=== PATIENT | female | born 1985 | race Caucasian/White ===

== ENCOUNTER 2021-03-19 13:33 | Outpatient (CLI) | payer OTHER | END 2021-03-19 13:34 | disposition critical access hospital (66) | LOC: EMS 13:33 | DX: S00.03XA Contusion of scalp, initial encounter (principal); R51.9 Headache, unspecified; R42 Dizziness and giddiness; R11.0 Nausea; W01.0XXA Fall on same level from slipping, tripping and stumbling without subsequent striking against object, initial encounter; Y92.211 Elementary school as the place of occurrence of the external cause; Y99.0 Civilian activity done for income or pay | CPT/HCPCS: A0425; A0429 ==

== ENCOUNTER 2021-03-19 13:52 | Emergency (ER) | payer OTHER ==
[2021-03-19 14:04] VITALS: BP 118/84
--- NOTE | 2021-03-19 14:52 | CT Report ---
PROCEDURE: HEAD WO INDICATIONS: Concussion, headache, neck pain TECHNIQUE: Noncontrast 4.5 mm thick angled axial sections acquired from the foramen magnum to the vertex. For r adiation dose reduction, the following was used: automated exposure control, adjustment of mA and/or kV according to patient size. COMPARISON: None. FINDINGS: Image quality: Excellent. CSF spaces: Basal cisterns are patent. No extra-axial fluid collections. Ventricles are normal in size and shape. Brain: No midline shift. No intracranial masses or hemorrhage. Andersen-white matter interface is norm al. Skull and face: Calvarium and visualized facial bones are intact, without suspicious lesions. Sinuses: Visualized sinuses and mastoids are clear. IMPRESSION: No acute intracranial finding demonstrated. Reviewed by: Preet Chao MD on 03/19/2021 2:51 PM PST Approved by: Preet Chao MD on 03/19/2021 2:51 PM PST Station ID: [id number]
--- NOTE | 2021-03-19 14:55 | CT Report ---
PROCEDURE: CERVICAL SPINE WO INDICATIONS: Concussion, headache, neck pain. TECHNIQUE: Noncontrast 3 mm thick sections acquired from the skull base to the T4 level. Sagittal and coronal r eformats were then constructed. For radiation dose reduction, the following was used: automated exp osure control, adjustment of mA and/or kV according to patient size. COMPARISON: None. FINDINGS: Straightening of the usual cervical lordosis, likely positional. No listhesis. Vertebral body heights are maintained. There is no cervical spine fracture. Remaining partially visualized bones are intact . Intervertebral disc spaces and facet joints are congruent with no evidence of subluxation or disloc ation. No abnormal widening of the posterior elements or interspinous distances. No unenhanced CT val dence of significant soft tissue abnormality. IMPRESSION: No acute intracranial finding. Reviewed by: Preet Chao MD on 03/19/2021 2:54 PM PST Approved by: Preet Chao MD on 03/19/2021 2:54 PM PST Station ID: [id number]
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
== END 2021-03-19 15:37 | disposition home or self-care (01) ==
LOC: EDUNIT# → ED 13:52
DX: S06.0X0A Concussion without loss of consciousness, initial encounter (principal); S16.1XXA Strain of muscle, fascia and tendon at neck level, initial encounter; W01.10XA Fall on same level from slipping, tripping and stumbling with subsequent striking against unspecified object, initial encounter; Y92.219 Unspecified school as the place of occurrence of the external cause; Y99.0 Civilian activity done for income or pay
CPT/HCPCS: 1040M; 99282; 99284

== ENCOUNTER 2022-01-17 10:21 | Outpatient (CLI) | payer OTHER | END 2022-01-17 10:22 | disposition EMS.NT | LOC: EMS 10:21 | DX: J06.9 Acute upper respiratory infection, unspecified (principal) ==

== ENCOUNTER 2022-05-01 15:58 | Emergency (ER) | payer OTHER ==
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
--- OUTSIDE RECORDS SUMMARY | 2022-05-01 16:39 | EXTERNAL MEDICAL SUMMARY RPT | Continuity of Care Document ---
:1985 Author Organization [facility] Address [address] [place] [address] Phone Care Team Providers Name Role Phone Dominick Proctor Unavailable Unavailable Allergies No information. Encounters No information. Functional Status No information. Immunizations No information. Medications date description facility 2022-04-03 00:00 Budesonide-Formoterol [facility]22-02-25 [facility]:00 Rizatriptan [facility]-03 [facility] Fexofenadine [facility] Problems date description facility 2022-02-25 00:00 Dizziness of unknown etiology [facility] 2022-02-25 00:00 Headache [facility] Procedures No information. 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 unknown) (unknown) (no (unknown) (unknown) Chickenpox (units (unk nown) date) () unknown) (unknown) (no (unknown) (unknown) Chief Complaint (units (unknown) date) unknown) (unknown) (no (unknown) (unknown) Chief Complaint: (units (unknown) date) Dizziness unknown) (unknown) (no (unknown) (unknown) Congestive heart (units (unknown) date) failure unknown) (unknown) (no (unknown) (unknown) Conjunctivae: (units ( unknown) date) conjunctivae unknown) normal (unknown) (no (unknown) (unknown) : 1985 (units (unknown) date) Acct:[id number] unknown) (unknown) (no (unknown) (unknown) Dept at (units (unkno wn) date) . unknown) (unknown) (no (unknown) (unknown) Details: (units (unkno wn) date) unknown) (unknown) (no (unknown) (unknown) Diabetes (units (unkno wn) date) mellitus unknown) (unknown) (no (unknown) (unknown) Documented By: (units (unknown) date) Ernesto Owens D.O. unknown) 02/25/22 1322 (unknown) (no (unknown) (unknown) Draft (units (unkno wn) date) unknown) (unknown) (no (unknown) (unknown) Eczema (-2008) (units (unknown) date) unknown) (unknown) (no (unknown) (unknown) Epilepsy (units (unkno wn) date) unknown) (unknown) (no (unknown) (unknown) Exam Narrative (units (unknown) date) unknown) (unknown) (no (unknown) (unknown) Exam Narrative: (units (unknown) date) unknown) (unknown) (no (unknown) (unknown) Exam (units (unkno wn) date) unknown) (unknown) (no (unknown) (unknown) Eyelids: eyelids (units (unknown) date) normal unknown) (unknown) (no (unknown) (unknown) Eyes (units (unkno wn) date) unknown) (unknown) (no (unknown) (unknown) 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, unknown) heterozygous (unknown) (no (unknown) (unknown) Family History (units (unknown) date) (Reviewed unknown) 01/29/22 @ 13:34 by CARSON Naidu) (unknown) (no (unknown) (unknown) Family Practice (units (unknown) date) Office Visit unknown) (unknown) (no (unknown) (unknown) Father (units (unkno wn) date) Congestive heart unknown) failure (unknown) (no (unknown) (unknown) Femur fracture, (units (unknown) date) right unknown) (unknown) (no (unknown) (unknown) Fibroids () (units (unknown) date) unknown) (unknown) (no (unknown) (unknown) [facility] (units ([facility] date[facility] unknown) (unknown) (no (unknown) (unknown) General: (units (unkno wn) date) appearance unknown) normal, both eyes and all related structures (unknown) (no (unknown) (unknown) General: (units (unkno wn) date) cooperative, unknown) healthy appearing and comfortable (unknown) (no (unknown) (unknown) Grandfather (units (un known) date) Cancer unknown) (unknown) (no (unknown) (unknown) Grandmother (units (un known) date) Diabetes unknown) mellitus (unknown) (no (unknown) (unknown) Grandmother (units (un known) date) unknown) Parkinsons (unknown) (no (unknown) (unknown) H/O (units (unkno wn) date) adenoidectomy unknown) (unknown) (no (unknown) (unknown) HENMT (units (unkno wn) date) unknown) (unknown) (no (unknown) (unknown) HPI (units (unkno wn) date) unknown) (unknown) (no (unknown) (unknown) Head: normal to (units (unknown) date) inspection unknown) (unknown) (no (unknown) (unknown) Heavy menstrual (units (unknown) date) period () unknown) (unknown) (no (unknown) (unknown) History of (units (unk nown) date) abdominal surgery unknown) () (unknown) (no (unknown) (unknown) History of (units (unk nown) date) frequent unknown) headaches () (unknown) (no (unknown) (unknown) History of (units (unk nown) date) orthopedic unknown) surgery () (unknown) (no (unknown) (unknown) History of (units (unk nown) date) recurrent ear unknown) infection (unknown) (no (unknown) (unknown) History of (units (unk nown) date) tonsillectomy unknown) () (unknown) (no (unknown) (unknown) Hx of (units (unkno wn) date) tympanostomy unknown) tubes (unknown) (no (unknown) (unknown) Hyperlipidemia (units (unknown) date) unknown) (unknown) (no (unknown) (unknown) Hypertension (units (u nknown) date) unknown) (unknown) (no (unknown) (unknown) Intake (units (unkno wn) date) unknown) (unknown) (no (unknown) (unknown) Irregular (units (unkn own) date) menstrual cycle unknown) () (unknown) (no (unknown) (unknown) Loc: [facility] (units (unkno wn) date) unknown) (unknown) (no (unknown) (unknown) Medical History (units (unknown) date) (Reviewed unknown) 01/29/22 @ 13:34 by CARSON Naidu) (unknown) (no (unknown) (unknown) Mother (units (unkno wn) date) Hyperlipidemia unknown) (unknown) (no (unknown) (unknown) Neck: normal (units (u nknown) date) visual inspection unknown) (unknown) (no (unknown) (unknown) Neuro: alert and (units (unknown) date) oriented x3, unknown) normal cognition, speech normal, normal gait (unknown) (no (unknown) (unknown) Nose: external (units (unknown) date) nose normal unknown) (unknown) (no (unknown) (unknown) Orientation: (units (u nknown) date) alert and unknown) oriented x3 (unknown) (no (unknown) (unknown) PFSH (units (unkno wn) date) unknown) (unknown) (no (unknown) (unknown) Painful (units (unkno wn) date) menstrual periods unknown) (-2009) (unknown) (no (unknown) (unknown) Patient: (units (unkno wn) date) Diana Marie unknown) MR#: [id number] (unknown) (no (unknown) (unknown) Penicillins (units (un known) date) [PENICILLINS] unknown) Allergy (Severe, Verified 01/29/22 11:45) (unknown) (no (unknown) (unknown) Plantar warts (units ( unknown) date) unknown) (unknown) (no (unknown) (unknown) Pneumothorax on (units (unknown) date) left unknown) (unknown) (no (unknown) (unknown) Psych: grossly (units (unknown) date) normal and well unknown) kempt, mental status grossly normal, speech and (unknown) (no (unknown) (unknown) Raynauds disease (units (unknown) date) unknown) (unknown) (no (unknown) (unknown) Reason For Visit (units (unknown) date) unknown) (unknown) (no (unknown) (unknown) Resp: normal (units (u nknown) date) respiratory unknown) effort and able to speak in complete sentences (unknown) (no (unknown) (unknown) Sclera: sclerae (units (unknown) date) normal unknown) (unknown) (no (unknown) (unknown) Seizures () (units (unknown) date) unknown) (unknown) (no (unknown) (unknown) Signed By: (units (unk nown) date) unknown) (unknown) (no (unknown) (unknown) Skin: no rashes (units (unknown) date) or lesions noted unknown) (unknown) (no (unknown) (unknown) Smoking Status: (units (unknown) date) Never smoker unknown) (unknown) (no (unknown) (unknown) Status post (units (un known) date) emergency unknown) tracheotomy for assistance in breathing () (unknown) (no (unknown) (unknown) Stroke () (units (unknown) date) unknown) (unknown) (no (unknown) (unknown) Surgical History (units (unknown) date) (Reviewed unknown) 01/29/22 @ 13:34 by CARSON Naidu) (unknown) (no (unknown) (unknown) This note may (units ( unknown) date) have been all or unknown) partially generated using voice recognition (unknown) (no (unknown) (unknown) Tobacco + (units (unkn own) date) Substance Use unknown) (unknown) (no (unknown) (unknown) Tobacco Status (units (unknown) date) unknown) (unknown) (no (unknown) (unknown) Vision disorder (units (unknown) date) unknown) (unknown) (no (unknown) (unknown) 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 (units (unknown) date) If there are any unknown) questions, please contact the Medical Records (unknown) (no (unknown) (unknown) may occur. (units (unk nown) date) Occasional unknown) wrong-word or 'sound-alike' substitutions may have (unknown) (no (unknown) (unknown) movement normal, (units (unknown) date) congruent mood unknown) (unknown) (no (unknown) (unknown) occurred due to (units (unknown) date) the inherent unknown) limitations of voice recognition software. Please (unknown) (no (unknown) (unknown) read the note (units ( unknown) date) carefully and unknown) recognize, using context, where these substitutions (unknown) (no (unknown) (unknown) software. 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 (unknown) (no (unknown) (unknown) substance use (units ( unknown) date) type: does not unknown) use Result panel 2 (unknown) (no (unknown) (unknown) (no value) (units (unk nown) date) unknown) (unknown) (no (unknown) (unknown) 08/21/21 [Rx (units (u nknown) date) Confirmed unknown) 02/25/22] (unknown) (no (unknown) (unknown) 02/25/22 (units (unkno wn) date) unknown) (unknown) (no (unknown) (unknown) 15:09 (units (unkno wn) date) unknown) (unknown) (no (unknown) (unknown) [id number] (units (unkno wn) date) unknown) (unknown) (no (unknown) (unknown) 36 yo female (units (u nknown) date) presents today unknown) for dizziness spells x 1 month. 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 unknown) (unknown) (no (unknown) (unknown) Chickenpox (units (unk nown) date) () unknown) (unknown) (no (unknown) (unknown) Chief Complaint (units (unknown) date) unknown) (unknown) (no (unknown) (unknown) Chief Complaint: (units (unknown) date) Dizziness unknown) (unknown) (no (unknown) (unknown) Congestive heart (units (unknown) date) failure unknown) (unknown) (no (unknown) (unknown) Conjunctivae: (units ( unknown) date) conjunctivae unknown) normal (unknown) (no (unknown) (unknown) : 1985 (units (unknown) date) Acct:[id number] unknown) (unknown) (no (unknown) (unknown) Dept at (units (unkno wn) date) . unknown) (unknown) (no (unknown) (unknown) Details: (units (unkno wn) date) unknown) (unknown) (no (unknown) (unknown) Diabetes (units (unkno wn) date) mellitus unknown) (unknown) (no (unknown) (unknown) Documented By: (units (unknown) date) Ernesto Owens D.O. unknown) 02/25/22 1322 (unknown) (no (unknown) (unknown) Draft (units (unkno wn) date) unknown) (unknown) (no (unknown) (unknown) Eczema (-2008) (units (unknown) date) unknown) (unknown) (no (unknown) (unknown) Epilepsy (units (unkno wn) date) unknown) (unknown) (no (unknown) (unknown) Exam Narrative (units (unknown) date) unknown) (unknown) (no (unknown) (unknown) Exam Narrative: (units (unknown) date) unknown) (unknown) (no (unknown) (unknown) Exam (units (unkno wn) date) unknown) (unknown) (no (unknown) (unknown) Eyelids: eyelids (units (unknown) date) normal unknown) (unknown) (no (unknown) (unknown) Eyes (units (unkno wn) date) unknown) (unknown) (no (unknown) (unknown) 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, unknown) heterozygous (unknown) (no (unknown) (unknown) Family History (units (unknown) date) (Reviewed unknown) 01/29/22 @ 13:34 by CARSON Naidu) (unknown) (no (unknown) (unknown) Family Practice (units (unknown) date) Office Visit unknown) (unknown) (no (unknown) (unknown) Father (units (unkno wn) date) Congestive heart unknown) failure (unknown) (no (unknown) (unknown) Femur fracture, (units (unknown) date) right unknown) (unknown) (no (unknown) (unknown) Fibroids (-2017) (units (unknown) date) unknown) (unknown) (no (unknown) (unknown) [facility] ([facility] ([facility] unknown) (unknown) (no (unknown) (unknown) General: (units (unkno wn) date) appearance unknown) normal, both eyes and all related structures (unknown) (no (unknown) (unknown) General: (units (unkno wn) date) cooperative, unknown) healthy appearing and comfortable (unknown) (no (unknown) (unknown) Grandfather (units (un known) date) Cancer unknown) (unknown) (no (unknown) (unknown) Grandmother (units (un known) date) Diabetes unknown) mellitus (unknown) (no (unknown) (unknown) Grandmother (units (un known) date) unknown) Parkinsons (unknown) (no (unknown) (unknown) H/O (units (unkno wn) date) adenoidectomy unknown) (unknown) (no (unknown) (unknown) HENMT (units (unkno wn) date) unknown) (unknown) (no (unknown) (unknown) HPI (units (unkno wn) date) unknown) (unknown) (no (unknown) (unknown) Head: normal to (units (unknown) date) inspection unknown) (unknown) (no (unknown) (unknown) Heavy menstrual (units (unknown) date) period (-2009) unknown) (unknown) (no (unknown) (unknown) Height 5 ft 5 in (units (unknown) date) unknown) (unknown) (no (unknown) (unknown) History of (units (unk nown) date) abdominal surgery unknown) () (unknown) (no (unknown) (unknown) History of (units (unk nown) date) frequent unknown) headaches () (unknown) (no (unknown) (unknown) History of (units (unk nown) date) orthopedic unknown) surgery () (unknown) (no (unknown) (unknown) History of (units (unk nown) date) recurrent ear unknown) infection (unknown) (no (unknown) (unknown) History of (units (unk nown) date) tonsillectomy unknown) (-1988) (unknown) (no (unknown) (unknown) Hx of (units (unkno wn) date) tympanostomy unknown) tubes (unknown) (no (unknown) (unknown) Hyperlipidemia (units (unknown) date) unknown) (unknown) (no (unknown) (unknown) Hypertension (units (u nknown) date) unknown) (unknown) (no (unknown) (unknown) Intake Note: (units (u nknown) date) unknown) (unknown) (no (unknown) (unknown) Intake performed (units (unknown) date) by: Susy Lin unknown) (unknown) (no (unknown) (unknown) Intake (units (unkno wn) date) unknown) (unknown) (no (unknown) (unknown) Intake- Clincial (units (unknown) date) Staff unknown) (unknown) (no (unknown) (unknown) Irregular (units (unkn own) date) menstrual cycle unknown) () (unknown) (no (unknown) (unknown) Keppra XR 750 mg (units (unknown) date) tablet,extended unknown) release (levetiracetam) 1,500 mg PO DAILY #180 (unknown) (no (unknown) (unknown) Loc: [facility] (units (unkno wn) date) unknown) (unknown) (no (unknown) (unknown) Medical History (units (unknown) date) (Reviewed unknown) 01/29/22 @ 13:34 by CARSON Naidu) (unknown) (no (unknown) (unknown) Medications (units (un known) date) unknown) (unknown) (no (unknown) (unknown) Mother (units (unkno wn) date) Hyperlipidemia unknown) (unknown) (no (unknown) (unknown) Neck: normal (units (u nknown) date) visual inspection unknown) (unknown) (no (unknown) (unknown) Neuro: alert and (units (unknown) date) oriented x3, unknown) normal cognition, speech normal, normal gait (unknown) (no (unknown) (unknown) Nose: external (units (unknown) date) nose normal unknown) (unknown) (no (unknown) (unknown) Orientation: (units (u nknown) date) alert and unknown) oriented x3 (unknown) (no (unknown) (unknown) PFSH (units (unkno wn) date) unknown) (unknown) (no (unknown) (unknown) Painful (units (unkno wn) date) menstrual periods unknown) () (unknown) (no (unknown) (unknown) Patient: (units (unkno wn) date) Diana Marie unknown) MR#: [id number] (unknown) (no (unknown) (unknown) Penicillins (units (un known) date) [PENICILLINS] unknown) Allergy (Severe, Verified 02/25/22 15:09) (unknown) (no (unknown) (unknown) Plantar warts (units ( unknown) date) unknown) (unknown) (no (unknown) (unknown) Pneumothorax on (units (unknown) date) left unknown) (unknown) (no (unknown) (unknown) Psych: grossly (units (unknown) date) normal and well unknown) kempt, mental status grossly normal, speech and (unknown) (no (unknown) (unknown) Raynauds disease (units (unknown) date) unknown) (unknown) (no (unknown) (unknown) Reason For Visit (units (unknown) date) unknown) (unknown) (no (unknown) (unknown) Resp: normal (units (u nknown) date) respiratory unknown) effort and able to speak in complete sentences (unknown) (no (unknown) (unknown) Sclera: sclerae (units (unknown) date) normal unknown) (unknown) (no (unknown) (unknown) Seizures (-2003) (units (unknown) date) unknown) (unknown) (no (unknown) (unknown) Signed By: (units (unk nown) date) unknown) (unknown) (no (unknown) (unknown) Skin: no rashes (units (unknown) date) or lesions noted unknown) (unknown) (no (unknown) (unknown) Smoking Status: (units (unknown) date) Never smoker unknown) (unknown) (no (unknown) (unknown) Status post (units (un known) date) emergency unknown) tracheotomy for assistance in breathing (-07/2003) (unknown) (no (unknown) (unknown) Stroke (-2003) (units (unknown) date) unknown) (unknown) (no (unknown) (unknown) Surgical History (units (unknown) date) (Reviewed unknown) 01/29/22 @ 13:34 by CARSON Naidu) (unknown) (no (unknown) (unknown) This note may (units ( unknown) date) have been all or unknown) partially generated using voice recognition (unknown) (no (unknown) (unknown) Tobacco + (units (unkn own) date) Substance Use unknown) (unknown) (no (unknown) (unknown) Tobacco Status (units (unknown) date) unknown) (unknown) (no (unknown) (unknown) Vision disorder (units (unknown) date) unknown) (unknown) (no (unknown) (unknown) 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 mo (unknown) (no (unknown) (unknown) Vitals (units (unkno wn) date) unknown) (unknown) (no (unknown) (unknown) [Rx Confirmed (units ( unknown) date) 02/25/22] unknown) (unknown) (no (unknown) (unknown) alcohol intake: (units (unknown) date) current unknown) (unknown) (no (unknown) (unknown) budesonide-formot (units (unknown) date) michelle HFA 80 unknown) mcg-4.5 mcg/actuation aerosol inhaler (Symbicort) 2 (unknown) (no (unknown) (unknown) concern about (units ( unknown) date) unknown) (unknown) (no (unknown) (unknown) epinephrine 0.3 (units (unknown) date) mg/0.3 mL unknown) injection, auto-injector (EpiPen 2-Uri) 0.3 mg (0.3 (unknown) (no (unknown) (unknown) fexofenadine 180 (units (unknown) date) mg tablet See Rx unknown) Instructions .Route .COMPLEX #90 tabs 01/03/22 (unknown) (no (unknown) (unknown) have occurred. (units (unknown) date) If there are any unknown) questions, please contact the Medical Records (unknown) (no (unknown) (unknown) mL) IM ONCE #2 (units (unknown) date) ea 12/06/20 [Rx unknown) Confirmed 02/25/22] (unknown) (no (unknown) (unknown) may occur. (units (unk nown) date) Occasional unknown) wrong-word or 'sound-alike' substitutions may have (unknown) (no (unknown) (unknown) mometasone 50 (units ( unknown) date) mcg/actuation unknown) nasal spray 2 spray intranasal DAILY #17 grams (unknown) (no (unknown) (unknown) montelukast 10 mg (units (unknown) date) tablet 10 mg PO unknown) ONCE #90 tabs 08/21/21 [Rx Confirmed 02/25/22] (unknown) (no (unknown) (unknown) movement normal, (units (unknown) date) congruent mood unknown) (unknown) (no (unknown) (unknown) nystatin 100,000 (units (unknown) date) unit/gram topical unknown) cream 1 applic topical BID #15 grams 03/27/20 (unknown) (no (unknown) (unknown) occurred due to (units (unknown) date) the inherent unknown) limitations of voice recognition software. Please (unknown) (no (unknown) (unknown) puff inhalation (units (unknown) date) BID #10.2 grams unknown) 08/19/21 [Rx Confirmed 02/25/22] (unknown) (no (unknown) (unknown) read the note (units ( unknown) date) carefully and unknown) recognize, using context, where these substitutions (unknown) (no (unknown) (unknown) software. 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 (unknown) (no (unknown) (unknown) substance use (units ( unknown) date) type: does not unknown) use (unknown) (no (unknown) (unknown) tabs 10/01/20 (units ( unknown) date) [Rx Confirmed unknown) 02/25/22] Result panel 3 (unknown) (no (unknown) (unknown) (no value) (units (unk nown) date) unknown) (unknown) (no (unknown) (unknown) 08/21/21 [Rx (units (u nknown) date) Confirmed unknown) 02/25/22] (unknown) (no (unknown) (unknown) 02/25/22 (units (unkno wn) date) unknown) (unknown) (no (unknown) (unknown) 15:09 (units (unkno wn) date) unknown) (unknown) (no (unknown) (unknown) [id number] (units (unkno wn) date) unknown) (unknown) (no (unknown) (unknown) 36 yo female (units (u nknown) date) presents today unknown) for dizziness spells x 1 month. 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 unknown) (unknown) (no (unknown) (unknown) Chickenpox (units (unk nown) date) (-1992) unknown) (unknown) (no (unknown) (unknown) Chief Complaint (units (unknown) date) unknown) (unknown) (no (unknown) (unknown) Chief Complaint: (units (unknown) date) Dizziness unknown) (unknown) (no (unknown) (unknown) Congestive heart (units (unknown) date) failure unknown) (unknown) (no (unknown) (unknown) Conjunctivae: (units ( unknown) date) conjunctivae unknown) normal (unknown) (no (unknown) (unknown) : 1985 (units (unknown) date) Acct:[id number] unknown) (unknown) (no (unknown) (unknown) Dept at (units (unkno wn) date) . unknown) (unknown) (no (unknown) (unknown) Details: (units (unkno wn) date) unknown) (unknown) (no (unknown) (unknown) Diabetes (units (unkno wn) date) mellitus unknown) (unknown) (no (unknown) (unknown) Documented By: (units (unknown) date) Ernesto Owens D.O. unknown) 02/25/22 1322 (unknown) (no (unknown) (unknown) Draft (units (unkno wn) date) unknown) (unknown) (no (unknown) (unknown) Eczema (-2009) (units (unknown) date) unknown) (unknown) (no (unknown) (unknown) Epilepsy (units (unkno wn) date) unknown) (unknown) (no (unknown) (unknown) Exam Narrative (units (unknown) date) unknown) (unknown) (no (unknown) (unknown) Exam Narrative: (units (unknown) date) unknown) (unknown)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 (unknown) (no (unknown) (unknown) Visit Reasons: (units (unknown) date) Annual unknown) Exam/dizziness f/u (unknown) (no (unknown) (unknown) alcohol intake: (units (unknown) date) current unknown) (unknown) (no (unknown) (unknown) have occurred. (units (unknown) date) If there are any unknown) questions, please contact the Medical Records (unknown) (no (unknown) (unknown) may occur. (units (unk nown) date) Occasional unknown) wrong-word or 'sound-alike' substitutions may have (unknown) (no (unknown) (unknown) occurred due to (units (unknown) date) the inherent unknown) limitations of voice recognition software. Please (unknown) (no (unknown) (unknown) read the note (units ( unknown) date) carefully and unknown) recognize, using context, where these substitutions (unknown) (no (unknown) (unknown) software. 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 (unknown) (no (unknown) (unknown) substance use (units ( unknown) date) type: does not unknown) use Result panel 12 (unknown) (no (unknown) (unknown) (no value) (units (unk nown) date) unknown) (unknown) (no (unknown) (unknown) 04/03/22 (units (unkno wn) date) unknown) (unknown) (no (unknown) (unknown) 08/21/21 [Rx (units (u nknown) date) Confirmed unknown) 04/03/22] (unknown) (no (unknown) (unknown) 15:02 (units (unkno wn) date) unknown) (unknown) (no (unknown) (unknown) [id number] (units (unkno wn) date) unknown) (unknown) (no (unknown) (unknown) 37 yo female (units (u nknown) date) presents today unknown) for an annual exam and dizziness f/u. Pt thinks the (unknown) (no (unknown) (unknown) ANAPHYLAXIS (units (un known) date) unknown) (unknown) (no (unknown) (unknown) Age/Sex: 37 / F (units (unknown) date) Date of Service: unknown) (unknown) (no (unknown) (unknown) Allergies (units (unkn own) date) unknown) (unknown) (no (unknown) (unknown) [place], [place] (units ( unknown) date) [id number] unknown) (unknown) (no (unknown) (unknown) Anesthesia (units (unk nown) date) unknown) (unknown) (no (unknown) (unknown) Asthma (units (unkno wn) date) unknown) (unknown) (no (unknown) (unknown) Attending Dr: (units ( unknown) date) Dominick Proctor unknown) D.O. (unknown) (no (unknown) (unknown) Chickenpox (units (unk nown) date) () unknown) (unknown) (no (unknown) (unknown) Congestive heart (units (unknown) date) failure unknown) (unknown) (no (unknown) (unknown) : 1985 (units (unknown) date) Acct:[id number] unknown) (unknown) (no (unknown) (unknown) Dept at (units (unkno wn) date) . unknown) (unknown) (no (unknown) (unknown) Diabetes (units (unkno wn) date) mellitus unknown) (unknown) (no (unknown) (unknown) Dizziness of (units (u nknown) date) unknown etiology unknown) (unknown) (no (unknown) (unknown) Documented By: (units (unknown) date) Dominick Proctor unknown) D.O. 04/03/22 1500 (unknown) (no (unknown) (unknown) Draft (units (unkno wn) date) unknown) (unknown) (no (unknown) (unknown) Eczema (-2008) (units (unknown) date) unknown) (unknown) (no (unknown) (unknown) Epilepsy (units (unkno wn) date) unknown) (unknown) (no (unknown) (unknown) 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, unknown) heterozygous (unknown) (no (unknown) (unknown) Family History (units (unknown) date) (Reviewed unknown) 01/29/22 @ 13:34 by CARSON Naidu) (unknown) (no (unknown) (unknown) Family Practice (units (unknown) date) Office Visit unknown) (unknown) (no (unknown) (unknown) Father (units (unkno wn) date) Congestive heart unknown) failure (unknown) (no (unknown) (unknown) Femur fracture, (units (unknown) date) right unknown) (unknown) (no (unknown) (unknown) Fibroids (-2018) (units (unknown) date) unknown) (unknown) (no (unknown) (unknown) [facility] ([facility] unknown) (unknown) (no (unknown) (unknown) Grandfather (units (un known) date) Cancer unknown) (unknown) (no (unknown) (unknown) Grandmother (units (un known) date) Diabetes unknown) mellitus (unknown) (no (unknown) (unknown) Grandmother (units (un known) date) unknown) Parkinsons (unknown) (no (unknown) (unknown) H/O (units (unkno wn) date) adenoidectomy unknown) (unknown) (no (unknown) (unknown) Headache (units (unkno wn) date) unknown) (unknown) (no (unknown) (unknown) Heavy menstrual (units (unknown) date) period (-2009) unknown) (unknown) (no (unknown) (unknown) Height 5 ft 5 in (units (unknown) date) unknown) (unknown) (no (unknown) (unknown) History of (units (unk nown) date) abdominal surgery unknown) () (unknown) (no (unknown) (unknown) History of (units (unk nown) date) frequent unknown) headaches (-2003) (unknown) (no (unknown) (unknown) History of (units (unk nown) date) orthopedic unknown) surgery () (unknown) (no (unknown) (unknown) History of (units (unk nown) date) recurrent ear unknown) infection (unknown) (no (unknown) (unknown) History of (units (unk nown) date) tonsillectomy unknown) () (unknown) (no (unknown) (unknown) Hx of (units (unkno wn) date) tympanostomy unknown) tubes (unknown) (no (unknown) (unknown) Hyperlipidemia (units (unknown) date) unknown) (unknown) (no (unknown) (unknown) Hypertension (units (u nknown) date) unknown) (unknown) (no (unknown) (unknown) Intake Note: (units (u nknown) date) unknown) (unknown) (no (unknown) (unknown) Intake performed (units (unknown) date) by: Susy Lin unknown) (unknown) (no (unknown) (unknown) Intake (units (unkno wn) date) unknown) (unknown) (no (unknown) (unknown) Intake- Clincial (units (unknown) date) Staff unknown) (unknown) (no (unknown) (unknown) Irregular (units (unkn own) date) menstrual cycle unknown) () (unknown) (no (unknown) (unknown) Keppra XR 750 mg (units (unknown) date) tablet,extended unknown) release (levetiracetam) 1,500 mg PO DAILY #180 (unknown) (no (unknown) (unknown) Loc: [facility] (units (unkno wn) date) unknown) (unknown) (no (unknown) (unknown) Medical History (units (unknown) date) (Updated 02/25/22 unknown) @ 16:02 by Ernesto Owens DO) (unknown) (no (unknown) (unknown) Medications (units (un known) date) unknown) (unknown) (no (unknown) (unknown) Mother (units (unkno wn) date) Hyperlipidemia unknown) (unknown) (no (unknown) (unknown) PFSH (units (unkno wn) date) unknown) (unknown) (no (unknown) (unknown) Painful (units (unkno wn) date) menstrual periods unknown) () (unknown) (no (unknown) (unknown) Patient: (units (unkno wn) date) FrankDiana M unknown) MR#: [id number] (unknown) (no (unknown) (unknown) Penicillins (units (un known) date) [PENICILLINS] unknown) Allergy (Severe, Verified 04/03/22 15:00) (unknown) (no (unknown) (unknown) Plantar warts (units ( unknown) date) unknown) (unknown) (no (unknown) (unknown) Pneumothorax on (units (unknown) date) left unknown) (unknown) (no (unknown) (unknown) Raynauds disease (units (unknown) date) unknown) (unknown) (no (unknown) (unknown) Reason For Visit (units (unknown) date) unknown) (unknown) (no (unknown) (unknown) Seizures () (units (unknown) date) unknown) (unknown) (no (unknown) (unknown) Signed By: (units (unk nown) date) unknown) (unknown) (no (unknown) (unknown) Smoking Status: (units (unknown) date) Never smoker unknown) (unknown) (no (unknown) (unknown) Status post (units (un known) date) emergency unknown) tracheotomy for assistance in breathing () (unknown) (no (unknown) (unknown) Stroke () (units (unknown) date) unknown) (unknown) (no (unknown) (unknown) Surgical History (units (unknown) date) (Reviewed unknown) 01/29/22 @ 13:34 by CARSON Naidu) (unknown) (no (unknown) (unknown) This note may (units ( unknown) date) have been all or unknown) partially generated using voice recognition (unknown) (no (unknown) (unknown) Tobacco + (units (unkn own) date) Substance Use unknown) (unknown) (no (unknown) (unknown) Tobacco Status (units (unknown) date) unknown) (unknown) (no (unknown) (unknown) Vision disorder (units (unknown) date) unknown) (unknown) (no (unknown) (unknown) Visit Reasons: (units (unknown) date) Annual unknown) Exam/dizziness f/u (unknown) (no (unknown) (unknown) Vitals (units (unkno wn) date) unknown) (unknown) (no (unknown) (unknown) [Rx Confirmed (units ( unknown) date) 04/03/22] unknown) (unknown) (no (unknown) (unknown) alcohol intake: (units (unknown) date) current unknown) (unknown) (no (unknown) (unknown) budesonide-formot (units (unknown) date) michelle HFA 80 unknown) mcg-4.5 mcg/actuation aerosol inhaler (Symbicort) 2 (unknown) (no (unknown) (unknown) dizziness was (units ( unknown) date) started from unknown) stopping control. She states she took (unknown) (no (unknown) (unknown) epinephrine 0.3 (units (unknown) date) mg/0.3 mL unknown) injection, auto-injector (EpiPen 2-Uri) 0.3 mg (0.3 (unknown) (no (unknown) (unknown) fexofenadine 180 (units (unknown) date) mg tablet See Rx unknown) Instructions .Route .COMPLEX #90 tabs 01/03/22 (unknown) (no (unknown) (unknown) have occurred. (units (unknown) date) If there are any unknown) questions, please contact the Medical Records (unknown) (no (unknown) (unknown) mL) IM ONCE #2 (units (unknown) date) ea 12/06/20 [Rx unknown) Confirmed 04/03/22] (unknown) (no (unknown) (unknown) may occur. (units (unk nown) date) Occasional unknown) wrong-word or 'sound-alike' substitutions may have (unknown) (no (unknown) (unknown) mometasone 50 (units ( unknown) date) mcg/actuation unknown) nasal spray 2 spray intranasal DAILY #17 grams (unknown) (no (unknown) (unknown) montelukast 10 mg (units (unknown) date) tablet 10 mg PO unknown) ONCE #90 tabs 08/21/21 [Rx Confirmed 04/03/22] (unknown) (no (unknown) (unknown) nystatin 100,000 (units (unknown) date) unit/gram topical unknown) cream 1 applic topical BID #15 grams 03/27/20 (unknown) (no (unknown) (unknown) occurred due to (units (unknown) date) the inherent unknown) limitations of voice recognition software. Please (unknown) (no (unknown) (unknown) puff inhalation (units (unknown) date) BID #10.2 grams unknown) 08/19/21 [Rx Confirmed 04/03/22] (unknown) (no (unknown) (unknown) read the note (units ( unknown) date) carefully and unknown) recognize, using context, where these substitutions (unknown) (no (unknown) (unknown) software. 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 (unknown) (no (unknown) (unknown) substance use (units ( unknown) date) type: does not unknown) use (unknown) (no (unknown) (unknown) tabs 10/01/20 (units ( unknown) date) [Rx Confirmed unknown) 04/03/22] Result panel 13 (unknown) (no (unknown) (unknown) (no value) (units (unk nown) date) unknown) (unknown) (no (unknown) (unknown) 04/03/22 (units (unkno wn) date) unknown) (unknown) (no (unknown) (unknown) 08/21/21 [Rx (units (u nknown) date) Confirmed unknown) 04/03/22] (unknown) (no (unknown) (unknown) 15:02 (units (unkno wn) date) unknown) (unknown) (no (unknown) (unknown) [id number] (units (unkno wn) date) unknown) (unknown) (no (unknown) (unknown) 37 yo female (units (u nknown) date) presents today unknown) for an annual exam and dizziness f/u. Pt thinks the (unknown) (no (unknown) (unknown) ANAPHYLAXIS (units (un known) date) unknown) (unknown) (no (unknown) (unknown) Age/Sex: 37 / F (units (unknown) date) Date of Service: unknown) (unknown) (no (unknown) (unknown) Allergies (units (unkn own) date) unknown) (unknown) (no (unknown) (unknown) [place], [place] (units ( unknown) date) [id number] unknown) (unknown) (no (unknown) (unknown) Anesthesia (units (unk nown) date) unknown) (unknown) (no (unknown) (unknown) Asthma (units (unkno wn) date) unknown) (unknown) (no (unknown) (unknown) Attending Dr: (units ( unknown) date) Dominick Proctor unknown) D.O. (unknown) (no (unknown) (unknown) BMI 24.0 (units (unkno wn) date) unknown) (unknown) (no (unknown) (unknown) BP 104/62 (units (unkn own) date) unknown) (unknown) (no (unknown) (unknown) Blood Pressure (units (unknown) date) Location Lt unknown) brachial (unknown) (no (unknown) (unknown) Chickenpox (units (unk nown) date) () unknown) (unknown) (no (unknown) (unknown) Congestive heart (units (unknown) date) failure unknown) (unknown) (no (unknown) (unknown) : 1985 (units (unknown) date) Acct:[id number] unknown) (unknown) (no (unknown) (unknown) Dept at (units (unkno wn) date) . unknown) (unknown) (no (unknown) (unknown) Diabetes (units (unkno wn) date) mellitus unknown) (unknown) (no (unknown) (unknown) Dizziness of (units (u nknown) date) unknown etiology unknown) (unknown) (no (unknown) (unknown) Documented By: (units (unknown) date) Dominick Proctor unknown) D.O. 04/03/22 1500 (unknown) (no (unknown) (unknown) Draft (units (unkno wn) date) unknown) (unknown) (no (unknown) (unknown) Eczema (-2008) (units (unknown) date) unknown) (unknown) (no (unknown) (unknown) Epilepsy (units (unkno wn) date) unknown) (unknown) (no (unknown) (unknown) 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, unknown) heterozygous (unknown) (no (unknown) (unknown) Family History (units (unknown) date) (Reviewed unknown) 01/29/22 @ 13:34 by CARSON Naidu) (unknown) (no (unknown) (unknown) Family Practice (units (unknown) date) Office Visit unknown) (unknown) (no (unknown) (unknown) Father (units (unkno wn) date) Congestive heart unknown) failure (unknown) (no (unknown) (unknown) Femur fracture, (units (unknown) date) right unknown) (unknown) (no (unknown) (unknown) Fibroids (-2018) (units (unknown) date) unknown) (unknown) (no (unknown) (unknown) [facility] ([facility] ([facility] date[facility] unknown) (unknown) (no (unknown) (unknown) Grandfather (units (un known) date) Cancer unknown) (unknown) (no (unknown) (unknown) Grandmother (units (un known) date) Diabetes unknown) mellitus (unknown) (no (unknown) (unknown) Grandmother (units (un known) date) unknown) Parkinsons (unknown) (no (unknown) (unknown) H/O (units (unkno wn) date) adenoidectomy unknown) (unknown) (no (unknown) (unknown) Headache (units (unkno wn) date) unknown) (unknown) (no (unknown) (unknown) Heavy menstrual (units (unknown) date) period (-2009) unknown) (unknown) (no (unknown) (unknown) Height 5 ft 5 in (units (unknown) date) unknown) (unknown) (no (unknown) (unknown) History of (units (unk nown) date) abdominal surgery unknown) () (unknown) (no (unknown) (unknown) History of (units (unk nown) date) frequent unknown) headaches () (unknown) (no (unknown) (unknown) History of (units (unk nown) date) orthopedic unknown) surgery () (unknown) (no (unknown) (unknown) History of (units (unk nown) date) recurrent ear unknown) infection (unknown) (no (unknown) (unknown) History of (units (unk nown) date) tonsillectomy unknown) () (unknown) (no (unknown) (unknown) Hx of (units (unkno wn) date) tympanostomy unknown) tubes (unknown) (no (unknown) (unknown) Hyperlipidemia (units (unknown) date) unknown) (unknown) (no (unknown) (unknown) Hypertension (units (u nknown) date) unknown) (unknown) (no (unknown) (unknown) Intake Note: (units (u nknown) date) unknown) (unknown) (no (unknown) (unknown) Intake performed (units (unknown) date) by: Susy Lin unknown) (unknown) (no (unknown) (unknown) Intake (units (unkno wn) date) unknown) (unknown) (no (unknown) (unknown) Intake- Clincial (units (unknown) date) Staff unknown) (unknown) (no (unknown) (unknown) Irregular (units (unkn own) date) menstrual cycle unknown) () (unknown) (no (unknown) (unknown) Keppra XR 750 mg (units (unknown) date) tablet,extended unknown) release (levetiracetam) 1,500 mg PO DAILY #180 (unknown) (no (unknown) (unknown) Loc: [facility] (units (unkno wn) date) unknown) (unknown) (no (unknown) (unknown) Medical History (units (unknown) date) (Updated 02/25/22 unknown) @ 16:02 by Ernesto Owens DO) (unknown) (no (unknown) (unknown) Medications (units (un known) date) unknown) (unknown) (no (unknown) (unknown) Mother (units (unkno wn) date) Hyperlipidemia unknown) (unknown) (no (unknown) (unknown) Oxygen Delivery (units (unknown) date) Method room air unknown) (unknown) (no (unknown) (unknown) PFSH (units (unkno wn) date) unknown) (unknown) (no (unknown) (unknown) Painful (units (unkno wn) date) menstrual periods unknown) () (unknown) (no (unknown) (unknown) Patient: (units (unkno wn) date) Diana Marie Marina unknown) MR#: [id number] (unknown) (no (unknown) (unknown) Penicillins (units (un known) date) [PENICILLINS] unknown) Allergy (Severe, Verified 04/03/22 15:00) (unknown) (no (unknown) (unknown) Plantar warts (units ( unknown) date) unknown) (unknown) (no (unknown) (unknown) Pneumothorax on (units (unknown) date) left unknown) (unknown) (no (unknown) (unknown) Position Sitting (units (unknown) date) unknown) (unknown) (no (unknown) (unknown) Pulse 82 (units (unkno wn) date) unknown) (unknown) (no (unknown) (unknown) Pulse Oximetry (units (unknown) date) (%) 99 unknown) (unknown) (no (unknown) (unknown) Pulse Source (units (u nknown) date) Monitor unknown) (unknown) (no (unknown) (unknown) Raynauds disease (units (unknown) date) unknown) (unknown) (no (unknown) (unknown) Reason For Visit (units (unknown) date) unknown) (unknown) (no (unknown) (unknown) Seizures () (units (unknown) date) unknown) (unknown) (no (unknown) (unknown) Signed By: (units (unk nown) date) unknown) (unknown) (no (unknown) (unknown) Smoking Status: (units (unknown) date) Never smoker unknown) (unknown) (no (unknown) (unknown) Status post (units (un known) date) emergency unknown) tracheotomy for assistance in breathing () (unknown) (no (unknown) (unknown) Stroke () (units (unknown) date) unknown) (unknown) (no (unknown) (unknown) Surgical History (units (unknown) date) (Reviewed unknown) 01/29/22 @ 13:34 by CARSON Naidu) (unknown) (no (unknown) (unknown) This note may (units ( unknown) date) have been all or unknown) partially generated using voice recognition (unknown) (no (unknown) (unknown) Tobacco + (units (unkn own) date) Substance Use unknown) (unknown) (no (unknown) (unknown) Tobacco Status (units (unknown) date) unknown) (unknown) (no (unknown) (unknown) Vision disorder (units (unknown) date) unknown) (unknown) (no (unknown) (unknown) Visit Reasons: (units (unknown) date) Annual unknown) Exam/dizziness f/u (unknown) (no (unknown) (unknown) Vitals (units (unkno wn) date) unknown) (unknown) (no (unknown) (unknown) Weight 144 lb 4 (units (unknown) date) oz unknown) (unknown) (no (unknown) (unknown) [Rx Confirmed (units ( unknown) date) 04/03/22] unknown) (unknown) (no (unknown) (unknown) alcohol intake: (units (unknown) date) current unknown) (unknown) (no (unknown) (unknown) budesonide-formot (units (unknown) date) michelle HFA 80 unknown) mcg-4.5 mcg/actuation aerosol inhaler (Symbicort) 2 (unknown) (no (unknown) (unknown) dizziness was (units ( unknown) date) started from unknown) stopping control. Pt is concerned about a (unknown) (no (unknown) (unknown) epinephrine 0.3 (units (unknown) date) mg/0.3 mL unknown) injection, auto-injector (EpiPen 2-Uri) 0.3 mg (0.3 (unknown) (no (unknown) (unknown) fexofenadine 180 (units (unknown) date) mg tablet See Rx unknown) Instructions .Route .COMPLEX #90 tabs 01/03/22 (unknown) (no (unknown) (unknown) have occurred. (units (unknown) date) If there are any unknown) questions, please contact the Medical Records (unknown) (no (unknown) (unknown) mL) IM ONCE #2 (units (unknown) date) ea 12/06/20 [Rx unknown) Confirmed 04/03/22] (unknown) (no (unknown) (unknown) may occur. (units (unk nown) date) Occasional unknown) wrong-word or 'sound-alike' substitutions may have (unknown) (no (unknown) (unknown) mometasone 50 (units ( unknown) date) mcg/actuation unknown) nasal spray 2 spray intranasal DAILY #17 grams (unknown) (no (unknown) (unknown) montelukast 10 mg (units (unknown) date) tablet 10 mg PO unknown) ONCE #90 tabs 08/21/21 [Rx Confirmed 04/03/22] (unknown) (no (unknown) (unknown) nystatin 100,000 (units (unknown) date) unit/gram topical unknown) cream 1 applic topical BID #15 grams 03/27/20 (unknown) (no (unknown) (unknown) occurred due to (units (unknown) date) the inherent unknown) limitations of voice recognition software. Please (unknown) (no (unknown) (unknown) puff inhalation (units (unknown) date) BID #10.2 grams unknown) 08/19/21 [Rx Confirmed 04/03/22] (unknown) (no (unknown) (unknown) read the note (units ( unknown) date) carefully and unknown) recognize, using context, where these substitutions (unknown) (no (unknown) (unknown) software. 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 (unknown) (no (unknown) (unknown) sore/bug bite (units ( unknown) date) like on R foot unknown) that hasn't gotten better. (unknown) (no (unknown) (unknown) substance use (units ( unknown) date) type: does not unknown) use (unknown) (no (unknown) (unknown) tabs 10/01/20 (units ( unknown) date) [Rx Confirmed unknown) 04/03/22] Result panel 14 (unknown) (no (unknown) (unknown) (no value) (units (unk nown) date) unknown) (unknown) (no (unknown) (unknown) 04/03/22 [Rx (units (u nknown) date) Confirmed unknown) 04/03/22] (unknown) (no (unknown) (unknown) 04/03/22 (units (unkno wn) date) unknown) (unknown) (no (unknown) (unknown) 10.2 grams 2RF (units (unknown) date) unknown) (unknown) (no (unknown) (unknown) 15:02 (units (unkno wn) date) unknown) (unknown) (no (unknown) (unknown) [id number] (units (unkno wn) date) unknown) (unknown) (no (unknown) (unknown) 37 yo female (units (u nknown) date) presents today unknown) for an annual exam and dizziness f/u. Pt thinks the (unknown) (no (unknown) (unknown) ANAPHYLAXIS (units (un known) date) unknown) (unknown) (no (unknown) (unknown) Age/Sex: 37 / F (units (unknown) date) Date of Service: unknown) (unknown) (no (unknown) (unknown) Allergies (units (unkn own) date) unknown) (unknown) (no (unknown) (unknown) [place], [place] (units ( unknown) date) [id number] unknown) (unknown) (no (unknown) (unknown) Anesthesia (units (unk nown) date) unknown) (unknown) (no (unknown) (unknown) Assessment + (units (u nknown) date) Plan unknown) (unknown) (no (unknown) (unknown) Asthma (units (unkno wn) date) unknown) (unknown) (no (unknown) (unknown) Attending Dr: (units ( unknown) date) Dominick Proctor unknown) D.O. (unknown) (no (unknown) (unknown) BMI 24.0 (units (unkno wn) date) unknown) (unknown) (no (unknown) (unknown) BP 104/62 (units (unkn own) date) unknown) (unknown) (no (unknown) (unknown) Blood Pressure (units (unknown) date) Location Lt unknown) brachial (unknown) (no (unknown) (unknown) Chickenpox (units (unk nown) date) () unknown) (unknown) (no (unknown) (unknown) Congestive heart (units (unknown) date) failure unknown) (unknown) (no (unknown) (unknown) : 1985 (units (unknown) date) Acct:[id number] unknown) (unknown) (no (unknown) (unknown) Dept at (units (unkno wn) date) . unknown) (unknown) (no (unknown) (unknown) Diabetes (units (unkno wn) date) mellitus unknown) (unknown) (no (unknown) (unknown) Dizziness of (units (u nknown) date) unknown etiology unknown) (unknown) (no (unknown) (unknown) Documented By: (units (unknown) date) Dominick Proctor unknown) D.O. 04/03/22 1500 (unknown) (no (unknown) (unknown) Draft (units (unkno wn) date) unknown) (unknown) (no (unknown) (unknown) Eczema (-2008) (units (unknown) date) unknown) (unknown) (no (unknown) (unknown) Epilepsy (units (unkno wn) date) unknown) (unknown) (no (unknown) (unknown) 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, unknown) heterozygous (unknown) (no (unknown) (unknown) Family History (units (unknown) date) (Reviewed unknown) 11/30/22 @ 13:34 by CARSON Naidu) (unknown) (no (unknown) (unknown) Family Practice (units (unknown) date) Office Visit unknown) (unknown) (no (unknown) (unknown) Father (units (unkno wn) date) Congestive heart unknown) failure (unknown) (no (unknown) (unknown) Femur fracture, (units (unknown) date) right unknown) (unknown) (no (unknown) (unknown) Fibroids (-2018) (units (unknown) date) unknown) (unknown) (no (unknown) (unknown) [facility] unknown) (unknown) (no (unknown) (unknown) Grandfather (units (un known) date) Cancer unknown) (unknown) (no (unknown) (unknown) Grandmother (units (un known) date) Diabetes unknown) mellitus (unknown) (no (unknown) (unknown) Grandmother (units (un known) date) unknown) Parkinsons (unknown) (no (unknown) (unknown) H/O (units (unkno wn) date) adenoidectomy unknown) (unknown) (no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 contact the Medical Records (unknown) (no (unknown) (unknown) history and exam (units (unknown) date) unknown) (unknown) (no (unknown) (unknown) history (units (unkno wn) date) medications and unknown) allergies. (unknown) (no (unknown) (unknown) history or (units (unk nown) date) significant change unknown) recently with hospitalizations surgeries and or (unknown) (no (unknown) (unknown) irregular she has (units (unknown) date) a history unknown) dysmenorrhea ever since the age of 11 has been on (unknown) (no (unknown) (unknown) issues (units (unkno wn) date) unknown) (unknown) (no (unknown) (unknown) mL) IM ONCE #2 ea (units (unknown) date) 12/06/20 [Rx unknown) Confirmed 04/03/22] (unknown) (no (unknown) (unknown) may occur. (units (unk nown) date) Occasional unknown) wrong-word or 'sound-alike' substitutions may have (unknown) (no (unknown) (unknown) midline, dentition (units (unknown) date) intact unknown) (unknown) (no (unknown) (unknown) mometasone 50 (units ( unknown) date) mcg/actuation nasal unknown) spray 2 spray intranasal DAILY #17 grams (unknown) (no (unknown) (unknown) mometasone 50 (units ( unknown) date) mcg/actuation unknown) (unknown) (no (unknown) (unknown) montelukast 10 mg (units (unknown) date) PO ONCE 90 tabs 2RF unknown) (unknown) (no (unknown) (unknown) montelukast 10 mg (units (unknown) date) tablet 10 mg PO unknown) ONCE #90 tabs 04/03/22 [Rx Confirmed 04/03/22] (unknown) (no (unknown) (unknown) nystatin 1 applic (units (unknown) date) topical BID 15 unknown) grams 1RF (unknown) (no (unknown) (unknown) nystatin 100,000 (units (unknown) date) unit/gram topical unknown) cream 1 applic topical BID #15 grams 04/03/22 (unknown) (no (unknown) (unknown) occurred due to (units (unknown) date) the inherent unknown) limitations of voice recognition software. Please (unknown) (no (unknown) (unknown) or rhonchi, good (units (unknown) date) peripheral pulses unknown) (unknown) (no (unknown) (unknown) puff inhalation (units (unknown) date) BID #10.2 grams unknown) 04/03/22 [Rx Confirmed 04/03/22] (unknown) (no (unknown) (unknown) read the note (units ( unknown) date) carefully and unknown) recognize, using context, where these substitutions (unknown) (no (unknown) (unknown) since 2009 (units (unk nown) date) currently on Keppra unknown) that is managed by her neurologist she will (unknown) (no (unknown) (unknown) software. 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 (unknown) (no (unknown) (unknown) specially with her (units (unknown) date) father having unknown) establish heart disease in his 40s (unknown) (no (unknown) (unknown) status epilepticus (units (unknown) date) unknown) (unknown) (no (unknown) (unknown) substance use (units ( unknown) date) type: does not use unknown) (unknown) (no (unknown) (unknown) tabs 10/01/20 [Rx (units (unknown) date) Confirmed 04/03/22] unknown) (unknown) (no (unknown) (unknown) underlying medical (units (unknown) date) history including unknown) her history of epilepsy and asthma. She (unknown) (no (unknown) (unknown) was encouraged as (units (unknown) date) well as proper unknown) nutrition and sleep habits. Patient will (unknown) (no (unknown) (unknown) we reviewed her (units (unknown) date) history and past unknown) medical problems as well as surgeries family Result panel 16 (unknown) (no date) (unknown) (unknown) 0 /ul (unkn own) (unknown) (no date) (unknown) (unknown) 0.8 % (unkn own) (unknown) (no date) (unknown) (unknown) 12.4 g/dl (unkn own) (unknown) (no date) (unknown) (unknown) 13.6 % (unkn own) (unknown) (no date) (unknown) (unknown) 1600 /ul (unkn own) (unknown) (no date) (unknown) (unknown) 185 x10 3/ul (unkn own) (unknown) (no date) (unknown) (unknown) 200 /ul (unkn own) (unknown) (no date) (unknown) (unknown) 2300 /ul (unkn own) (unknown) (no date) (unknown) (unknown) 3.87 x10 6/ul (unkn own) (unknown) (no date) (unknown) (unknown) 3.9 % (unkn own) (unknown) (no date) (unknown) (unknown) 300 /ul (unkn own) (unknown) (no date) (unknown) (unknown) 31.9 pg (unkn own) (unknown) (no date) (unknown) (unknown) 34.3 % (unkn own) (unknown) (no date) (unknown) (unknown) 36.0 % (unkn own) (unknown) (no date) (unknown) (unknown) 36.1 % (unkn own) (unknown) (no date) (unknown) (unknown) 4.3 x10 3/ul (unkn own) (unknown) (no date) (unknown) (unknown) 53.2 % (unkn own) (unknown) (no date) (unknown) (unknown) 6.0 % (unkn own) (unknown) (no date) (unknown) (unknown) 93.0 fl (unkn own) Result panel 17 (unknown) (no date) (unknown) (unknown) 1.37 uiu/ml (unkn own) Result panel 18 (unknown) (no date) (unknown) (unknown) > 60 ml/min (unkn own) (unknown) (no date) (unknown) (unknown) > 60 ml/min (unkn own) (unknown) (no date) (unknown) (unknown) 0.3 mg/dl (unkn own) (unknown) (no date) (unknown) (unknown) 0.89 mg/dl (unkn own) (unknown) (no date) (unknown) (unknown) 1.5 (units unknown) (unknown) (unknown) (no date) (unknown) (unknown) 101 mg/dl (unkn own) (unknown) (no date) (unknown) (unknown) 101 mg/dl (unkn own) (unknown) (no date) (unknown) (unknown) 101 mmol/l (unkn own) (unknown) (no date) (unknown) (unknown) 13 mg/dl (unkn own) (unknown) (no date) (unknown) (unknown) 139 mmol/l (unkn own) (unknown) (no date) (unknown) (unknown) 14.6 (units unknown) (unknown) (unknown) (no date) (unknown) (unknown) 167 mg/dl (unkn own) (unknown) (no date) (unknown) (unknown) 167 mg/dl (unkn own) (unknown) (no date) (unknown) (unknown) 26 iu/l (unkn own) (unknown) (no date) (unknown) (unknown) 27 mmol/l (unkn own) (unknown) (no date) (unknown) (unknown) 29 iu/l (unkn own) (unknown) (no date) (unknown) (unknown) 3.0 g/dl (unkn own) (unknown) (no date) (unknown) (unknown) 4.0 mmol/l (unkn own) (unknown) (no date) (unknown) (unknown) 4.4 g/dl (unkn own) (unknown) (no date) (unknown) (unknown) 52 mg/dl (unkn own) (unknown) (no date) (unknown) (unknown) 52 mg/dl (unkn own) (unknown) (no date) (unknown) (unknown) 53 u/l (unkn own) (unknown) (no date) (unknown) (unknown) 7.4 g/dl (unkn own) (unknown) (no date) (unknown) (unknown) 70 mg/dl (unkn own) (unknown) (no date) (unknown) (unknown) 70 mg/dl (unkn own) (unknown) (no date) (unknown) (unknown) 8.9 mg/dl (unkn own) (unknown) (no date) (unknown) (unknown) 87 mg/dl (unkn own) (unknown) (no date) (unknown) (unknown) 87 mg/dl (unkn own) Social History date description facility 2022-02-25 00:00 Never smoked tobacco (finding) [facility] 2022-04-03 00:00 Never smoked tobacco (finding) [facility] Vital Signs date measurement value units 2022-02-25 00:00 BMI 23.6 kg/m2 2022-02-25 00:00 BP_diastolic 68 mmHg 2022-02-25 00:00 BP_systolic 108 mmHg 2022-02-25 00:00 heart_rate 76 /min 2022-02-25 00:00 height_metric 165.1 cm 2022-02-25 00:00 height_standard 65 in 2022-02-25 00:00 o2_saturation 98 % 2022-02-25 00:00 weight_metric 64.41 kg 2022-02-25 00:00 weight_standard 142 lb 2022-04-03 00:00 BMI 24.0 kg/m2 2022-04-03 00:00 BP_diastolic 62 mmHg 2022-04-03 00:00 BP_systolic 104 mmHg 2022-04-03 00:00 heart_rate 82 /min 2022-04-03 00:00 height_metric 165.1 cm 2022-04-03 00:00 height_standard 65 in 2022-04-03 00:00 o2_saturation 99 % 2022-04-03 00:00 weight_metric 65.43 kg 2022-04-03 00:00 weight_standard 144.25 lb
[2022-05-01 16:47] VITALS: BP 112/82
== END 2022-05-01 16:56 | disposition home or self-care (01) ==
LOC: ED 15:58
DX: N64.4 Mastodynia (principal)
CPT/HCPCS: 99281; 99283